=== PATIENT | male | born 1955 | race Caucasian/White ===

== ENCOUNTER 2018-01-11 06:59 | Day surgery (SDC) | payer OTHER, SELFPAY ==
[2018-01-11] VITALS (7 sets, daily range): BP systolic 107–125; BP diastolic 73–85; PULSE 51–57; RESP 6–16; TEMP 36.2–36.6; O2SAT 95–99; BMI 23.7
--- NOTE | 2018-01-11 | PATH_ITS ---
[facility] Accession Number: [id number] . 01 Material submitted: . PART A: COLON POLYP AT 40CM PART B: COLON POLYP AT 20CM . 02 Diagnosis: A. Biopsy Colon Polyp at 40 cm: Changes consistent with prolapsed inflammatory polyp, negative for atypia. . B. Biopsy Colon Polyp at 20 cm: Polypoid tubular adenoma. MRV/01/12/2018 . 02 Electronically signed: . Derrick Humphreys MD, Pathologist NPI- [id number] . 01 Gross description: . Received are two formalin-filled containers, both labeled with the patient's name: . A. In a container labeled colon polyp at 40 cm, the specimen consists of a 0.3 cm portion of tissue, entirely submitted in cassette A. B. In a container labeled colon polyp at 20 cm, the specimen consists of a 0.6 cm portion of tissue, which is trisected and totally submitted in cassette B. ([id number]) /FRR . 02 Pathologist provided ICD-10: D12.8 . 02 CPT . 120465, 014112 Performed at: 01 [facility] [address] [facility], [place], [place] [id number] MD Medardo Stoll MD Phone: [phone] Performed at: 02 [facility] [address] [address] [facility] [address] [place], [place] [id number] MD Zev Harris MD Phone: [phone]
[2018-01-11] MEDS: SODIUM CHLORIDE 0.9% 1,000 ML 200 ML IV (07:35)
--- NOTE | 2018-01-11 07:50 | PM.HP.1 ---
History of Present Illness Chief complaint: [id number] Patient History Medical History Hypercholesterolemia (Acute) Family & Social History Social History: household members spouse Tobacco & Substance use: Never smoker Meds Home Medications Medication Instructions Recorded Confirmed Type Zetia 10 mg PO DAILY 01/11/18 01/11/18 History Allergies Allergy/AdvReac Type Severity Reaction Status Date / Time atorvastatin AdvReac Cramping Verified 01/11/18 07:35 of the Muscles Review of Systems Review of Systems All systems reviewed & are unremarkable except as noted in HPI and below ENT Comments: Hearing aid Exam Vital Signs (past 8 hours): Vital Signs - 8 hr 01/11/18 07:21 Temperature 97.8 F Pulse Rate 52 L Respiratory Rate 16 Blood Pressure 119/78 Pulse Oximetry 99 Pulse Oximetry 99 Oxygen Delivery Method Room Air Narrative Exam Narrative: coOperative in no apparent distress. Healthy appearing. Eyes nonicteric. Lungs clear to auscultation no rales or rhonchi heart regular rate and rhythm without murmur or gallop abdomen is scaphoid soft nontender without masses or organ enlargement. Alert and oriented x3. Assessment & Plan Plan: Assessment/Plan Narrative: Patient with a sister at age 49 having colon cancer. He had polyps removed at his last exam which was 5 years ago. I have discussed the procedure with him and rationale. Risks of bleeding, perforation which would necessitate a major operation, failure to find removal lesions of the potential tattoo were all discussed. He appears to understand and wishes to proceed
--- NOTE | 2018-01-11 07:54 | P.HP_ITS ---
History of Present Illness Chief complaint: [id number] Patient History Medical History Hypercholesterolemia (Acute) Family & Social History Social History: household members spouse Tobacco & Substance use: Never smoker Meds Home Medications Medication Instructions Recorded Confirmed Type Zetia 10 mg PO DAILY 01/11/18 01/11/18 History Allergies Allergy/AdvReac Type Severity Reaction Status Date / Time atorvastatin AdvReac Cramping Verified 01/11/18 07:35 of the Muscles Review of Systems Review of Systems All systems reviewed & are unremarkable except as noted in HPI and below ENT Comments: Hearing aid Exam Vital Signs (past 8 hours): Vital Signs - 8 hr 3 01/11/18 07:21 Temperature 97.8 F Pulse Rate 52 L Respiratory Rate 16 Blood Pressure 119/78 Pulse Oximetry 99 Pulse Oximetry 99 Oxygen Delivery Method Room Air Narrative Exam Narrative: coOperative in no apparent distress. Healthy appearing. Eyes nonicteric. Lungs clear to auscultation no rales or rhonchi heart regular rate and rhythm without murmur or gallop abdomen is scaphoid soft nontender without masses or organ enlargement. Alert and oriented x3. Assessment & Plan Plan: Assessment/Plan Narrative: Patient with a sister at age 49 having colon cancer. He had polyps removed at his last exam which was 5 years ago. I have discussed the procedure with him and rationale. Risks of bleeding, perforation which would necessitate a major operation, failure to find removal lesions of the potential tattoo were all discussed. He appears to understand and wishes to proceed
--- NOTE | 2018-01-11 07:54 | PM.PREOP ---
Pre-operative Note Interval Note Pre-op Check: History & Physical exam performed today H&P completed within 30 days and has changed as indicated here:: None ASA Class (for procedural sedation): I
[2018-01-11] MEDS: fentaNYL 250 MCG/5 ML INJ IV (08:33)
[2018-01-11] MEDS: MIDAZOLAM 5 MG/5 ML VIAL IV (08:34)
--- NOTE | 2018-01-11 09:04 | P.OP.ENDO_ITS ---
Operative Date/Time/Diagnoses - Date of procedure: 01/11/18 Time of procedure: 08:57 Pre-op diagnosis: Screening examination. Family history of colon cancer in a sister. Last colonoscopy 5 years ago. Post-op diagnosis: same (With 2 polyps and small internal hemorrhoids) Procedure & Clinicians Study performed: Colonoscopy with hot snare polypectomy x2 Same procedure as scheduled: Yes Indications: Screening Surgeon: Partha Washburn Procedure Notes SCOAP/Timeout: Performed Procedure in detail: The patient was placed in the left lateral decubitus position and underwent IV sedation directed by the surgeon consisting of fentanyl and Versed. Digital exam was unremarkable. Prostate is normal in size without masses. The scope was advanced to about 50 cm and I could not get the suction to stop sticking. Advancement was quite difficult because of this and therefore the scope was removed and replaced with another scope. This scope was inserted and advanced through the rectum into the sigmoid, descending , transverse, and ascending colon.[I noted a polyp at about 20 cm which I decided to remove on withdrawal]. The cecum was reached identified by the ileocecal valve and the appendiceal opening. The ileocecal valve was successfully cannulated. The terminal ileum was normal in appearance. The scope was gradually brought out. Polyps were found at 40 cm and 20 cm from the anal verge. Both were snared with a hot snare. The largest of the 2 was the most distal at 20 cm and it measured about a cm across. Both appeared to be completely removed. The scope was slowly removed into the rectum. The scope ultimately was retroflexed in the rectum. The appearance was normal except for some small internal hemorrhoids seen as I straightened the scope was slowly pulled it through the anus. The scope was removed and the patient tolerated the procedure well Scope withdrawal time: 12 min excluding snare time Sedation minutes: 43 Findings: internal hemorrhoids (Small without ulceration) and polyp (Twenty and 40 cm from the anal verge) Specimen(s): other (Two polyps) Complications: none Recommendations: Colonscopy in 5 years Plan for aftercare: Follow-up 5 years. Prep was very good. Follow up: as needed Disposition: PACU
--- NOTE | 2018-01-11 10:03 | SUR.PHASEII ---
Pt sat up and c/o feeling lightheaded. Pt reclined and po intake provided. vs stable. pt discharged when reported feeling well.
== END 2018-01-11 09:46 | disposition home or self-care (01) ==
PROVIDERS: PCP Family Medicine; Visit Provider Specialist
PROC: 0DJD8ZZ Inspection of Lower Intestinal Tract, Via Natural or Artificial Opening Endoscopic (ICD-10-PCS; CPT 45378; principal; 2018-01-11 07:45)
DX: Z12.11 Encounter for screening for malignant neoplasm of colon (principal); Z80.0 Family history of malignant neoplasm of digestive organs; K64.8 Other hemorrhoids; E78.5 Hyperlipidemia, unspecified; D12.6 Benign neoplasm of colon, unspecified
CPT/HCPCS: 45385; 99152; 99153; J2250; J3010

== ENCOUNTER → 2019-03-15 09:59 | Outpatient (CLI) | payer MEDICARE, OTHER, SELFPAY ==
--- NOTE | 2019-03-15 | DI.RAD.S_ITS ---
PROCEDURE: XR HIP W PEL IF DONE RT 2V INDICATIONS: RIGHT HIP PAIN TECHNIQUE: 2 views of the hip were acquired. COMPARISON: None. FINDINGS: Bones: No fractures or dislocations, however there is near severe right hip joint osteoarthritis with near [id number] articulation.. No suspicious bony lesions. The visualized pelvic ring appears intact. Soft tissues: No suspicious soft tissue calcifications or masses. IMPRESSION: No prior trauma. 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 Dictated by: Nathaniel Verduzco M.D. on 03/15/2019 at 11:47 Approved by: Nathaniel Verduzco M.D. on 03/15/2019 at 11:48
== END ==
PROVIDERS: PCP Family Medicine; Visit Provider Family Medicine
DX: M25.551 Pain in right hip (principal); M16.11 Unilateral primary osteoarthritis, right hip
CPT/HCPCS: 73502

== ENCOUNTER → 2019-08-10 15:12 | Outpatient (ROUT) | payer MEDICARE, OTHER, SELFPAY ==
[2019-08-10 15:52] LABS: INR 0.9 (0.9-1.3); Prothrombin Time 10.8 SECONDS (10.1-12.7)
[2019-08-10 15:54] LABS: PTT Partial Thromboplastin Tim 32 SECONDS (26.4-36.2)
== END ==
PROVIDERS: PCP Family Medicine; Visit Provider Family Medicine
DX: M25.551 Pain in right hip (principal)
CPT/HCPCS: 85610; 85730

== ENCOUNTER → 2021-02-05 12:18 | Outpatient (CLI) | payer MEDICARE, OTHER, SELFPAY ==
--- NOTE | 2021-02-05 12:24 | DI.RAD.S_ITS ---
PROCEDURE: XR CHEST 2V INDICATIONS: COUGH TECHNIQUE: 2 views of the chest were acquired. COMPARISON: None. FINDINGS: Surgical changes and devices: None. Lungs and pleura: Lungs are clear. No pleural effusions or pneumothorax. Mediastinum: Mediastinal contours are normal. Heart size is normal. Bones and chest wall: No suspicious bony abnormalities. Soft tissues appear unremarkable. IMPRESSION: No acute cardiopulmonary process demonstrated radiographically. Dictated by: Bashir Bentley M.D. on 02/05/2021 at 12:40 Approved by: Bashir Bentley M.D. on 02/05/2021 at 12:41
== END ==
PROVIDERS: PCP Family Medicine; Referring Provider Family Medicine; Visit Provider Family Medicine
DX: R05 Cough (principal)
CPT/HCPCS: 71046

== ENCOUNTER → 2021-04-29 11:35 | Outpatient (CLI) | payer MEDICARE, OTHER, SELFPAY ==
--- NOTE | 2021-04-29 | DI.RAD.S_ITS ---
PROCEDURE: XR CHEST 2V INDICATIONS: DYSPNEA TECHNIQUE: 2 views of the chest were acquired. COMPARISON: [facility], CR, XR CHEST 2V, 02/05/2021, 12:22. FINDINGS: Surgical changes and devices: None. Lungs and pleura: Lungs are clear. No pleural effusions or pneumothorax. Mediastinum: Mediastinal contours are normal. Heart size is normal. Bones and chest wall: No suspicious bony abnormalities. Soft tissues appear unremarkable. IMPRESSION: No evidence acute pulmonary process. Dictated by: Tai Chavis M.D. on 04/29/2021 at 16:13 Approved by: Tai Chavis M.D. on 04/29/2021 at 16:14
[2021-04-29 13:02] LABS: Add Manual Diff / Slide Review NO; Basophils Absolute Auto 0 /uL (0-100); Basophils Percent Auto 0.5 % (0-2); Eosinophils Absolute Auto 100 /uL (0-450); Eosinophils Percent Auto 2.3 % (2-4); Hemoglobin 16.9 g/dL (13.5-17.5); Lymphocytes Absolute Auto 1800 /uL (1100-4500); Lymphocytes Percent Auto 35.1 % (25-40); Mean Corpuscular HGB Conc 33.8 % (30-36); Mean Corpuscular Hemoglobin 31.5 PG (26-34); Mean Corpuscular Volume 93.2 fL (80-100); Monocytes Absolute Auto 600 /uL (0-900); Monocytes Percent Auto 10.7 % (3-14); Neutrophils Absolute Auto 2600 /uL (1500-7000); Neutrophils Percent Auto 51.4 % (50-75); Platelet Count 191 X10^3/uL (150-400); Red Blood Cell Count 5.37 X10^6/uL (4.5-5.9); Red Cell Distribution Width 13.6 % (11.6-14.8); White Blood Cell Count 5.1 X10^3/uL (4.5-11.0)
[2021-04-29 13:27] LABS: Alanine Aminotransferase 66 IU/L (<50); Albumin 4.5 g/dL (3.5-5.0); Albumin Globulin Ratio 1.6 (1.0-2.8); Alkaline Phosphatase 51 U/L (38-126); Aspartate Aminotransferase 55 IU/L (17-59); BUN Creatinine Ratio 18.9 (6-22); Bilirubin Total 0.8 mg/dL (0.2-1.3); Blood Urea Nitrogen 17 mg/dL (9-20); Calcium 9.8 mg/dL (8.4-10.2); Carbon Dioxide 30 mmol/L (22-32); Chloride 103 mmol/L (98-107); Estimated Glomerular Filt Rate > 60.0 mL/min (>60); Globulin 2.9 g/dL (1.7-4.1); Glucose 109 mg/dL (80-110); HEMOLYSIS < 15 (0-50); Potassium 3.9 mmol/L (3.4-5.1); Sodium 140 mmol/L (137-145); Total Protein 7.4 g/dL (6.3-8.2)
[2021-04-29 13:55] LABS: Prostate Specific Antigen Scrn 2.72 ng/mL (0.1-4.0)
[2021-04-29 13:57] LABS: Thyroid Stimulating Hormone 1.61 uIU/mL (0.47-4.68)
== END ==
PROVIDERS: PCP Family Medicine; Referring Provider Family Medicine; Visit Provider Family Medicine
DX: R06.02 Shortness of breath (principal); E78.5 Hyperlipidemia, unspecified; Z12.5 Encounter for screening for malignant neoplasm of prostate; R06.09 Other forms of dyspnea
CPT/HCPCS: 36415; 71046; 80053; 84443; 85025; G0103

== ENCOUNTER → 2021-04-30 09:45 | Outpatient (CLI) | payer MEDICARE, OTHER, SELFPAY ==
--- NOTE | 2021-04-30 | DI.CT.S_ITS ---
PROCEDURE: CT ANGIO CHEST PE PROTOCOL INDICATIONS: Fatigue, short of breath TECHNIQUE: After the administration of intravenous contrast, 2 mm thick sections acquired from the pulmonary apices to the posterior costophrenic angles. Maximum intensity projection (MIP) coronal and sagittal reformats were then acquired through the thorax. For radiation dose reduction, the following was used: automated exposure control, adjustment of mA and/or kV according to patient size. COMPARISON: None. FINDINGS: Image quality: Excellent. Pulmonary arteries: Pulmonary arteries are normal in size, and demonstrate no intraluminal filling defects to suggest central pulmonary embolism. Lungs and pleura: Lungs are clear. No pleural effusions or pneumothorax. Central and peripheral airways are patent. Nonspecific bibasilar atelectasis. Mediastinum: Heart size is normal, without pericardial effusion. No mediastinal or hilar adenopathy. Thoracic aorta is normal in caliber and enhancement. Esophagus is normal in caliber, without hiatal hernia. Bones and chest wall: No suspicious bony lesions. Ribs and thoracic spine appear intact throughout. Thyroid gland unremarkable. No axillary or supraclavicular adenopathy. Abdomen: Visualized upper abdominal solid organs appear normal in the early arterial phase of enhancement. IMPRESSION: No evidence of pulmonary embolism, aortic dissection or aneurysm. Minimal nonspecific dependent atelectasis Approved by: Justin Lugo M.D. on 04/30/2021 at 9:30
== END ==
PROVIDERS: PCP Family Medicine; Referring Provider Family Medicine; Visit Provider Family Medicine
DX: R06.09 Other forms of dyspnea (principal); R53.83 Other fatigue; R06.02 Shortness of breath
CPT/HCPCS: 71275

== ENCOUNTER → 2021-05-21 08:09 | Outpatient (CLI) | payer MEDICARE, OTHER, SELFPAY ==
[2021-05-21 10:24] LABS: COVID19 -Nasal RAPID Negative (Negative)
== END ==
PROVIDERS: PCP Family Medicine; Visit Provider Nurse Practitioner
DX: Z01.812 Encounter for preprocedural laboratory examination (principal); Z20.822 Contact with and (suspected) exposure to COVID-19
CPT/HCPCS: 87635; C9803

== ENCOUNTER → 2021-05-22 09:28 | Outpatient (CLI) | payer MEDICARE, OTHER, SELFPAY ==
--- NOTE | 2021-05-23 20:16 | DI.NM.S_ITS ---
DATE OF SERVICE: 05/22/2021 PROCEDURE PERFORMED: Exercise treadmill stress and rest myocardial perfusion imaging study with gating to assess ejection fraction and regional wall motion. ORDERING PROVIDER: Dr. Denver Jimenez. INDICATIONS: The patient is a 66-year-old male with progressive exertional dyspnea and exercise intolerance. EXERCISE STRESS TESTING: The patient was able to exercise for 8 minutes, 12 seconds on a standard Gennaro protocol, suggesting good exercise capacity with an GEO of -11%. He had a normal heart rate and blood pressure response, achieving a maximum heart rate of 142 BPM (93% of his predicted maximum). He had no chest discomfort but at peak exercise developed profound wheezing associated with respirophasic chest tightness and dyspnea that resolved 2 minutes into recovery. His resting ECG shows nonspecific repolarization abnormality in the inferior leads that become slightly accentuated with stress, but remain nonspecific for ischemia. There were no arrhythmias. At 7 minutes of exercise at a heart rate of 135 BPM, 27.2 millicuries of technetium-99m Myoview was injected and he was imaged 25 minutes later using a gated SPECT acquisition protocol. The following day, he was reinjected with an additional 26.2 millicuries of technetium-99m Myoview was imaged 20 minutes later, again using a gated SPECT acquisition protocol. FINDINGS: 1. Raw data: There is fairly good myocardial tracer uptake. The lung/heart ratio is normal at 0.23 with a normal TID ratio of 0.93. 2. Quantitated gated SPECT: Post-stress ejection fraction is estimated at 68% without any focal wall motion abnormality. Resting ejection fraction is estimated at 62% with a normal end-diastolic volume of 99 mL. 3. Myocardial perfusion imaging: Post-stress supine images shows a fairly uniform pattern of tracer activity without any significant perfusion defects, supported by normal perfusion imaging in the prone position. The resting images show an identical perfusion pattern without any clear areas of significant improvement. IMPRESSION: 1. Normal myocardial perfusion study. 2. No evidence of myocardial ischemia or previous myocardial infarction. 3. Normal left ventricular systolic function without any focal wall motion abnormality. 4. Good exercise capacity without obvious angina, although development of acute wheezing at peak exercise with associated respirophasic chest tightness and dyspnea that promptly resolved. This would suggest possible exercise-induced asthma. He had mild baseline ST-segment abnormalities that become accentuated with stress but remain nonspecific for ischemia. There were no arrhythmias. Greg Baum - Justyn/eliana doc#: [id number]/job#: [id number] dd: 05/23/2021 17:04:00 dt: 05/23/2021 19:22:00 DICTATING MD/COPIES TO: Denver Porter MD; Denver Jimenez MD COPIES MNE: DOUGIE;
== END ==
PROVIDERS: PCP Family Medicine; Referring Provider Family Medicine; Visit Provider Family Medicine
DX: R06.00 Dyspnea, unspecified
CPT/HCPCS: 78452; 93017; A9502

== ENCOUNTER → 2021-06-12 10:54 | Outpatient (CLI) | payer MEDICARE, OTHER, SELFPAY ==
[2021-06-12 12:09] LABS: COVID19 -Nasal RAPID Negative (Negative)
== END ==
PROVIDERS: PCP Family Medicine; Referring Provider Internal Medicine; Visit Provider Internal Medicine
DX: Z20.822 Contact with and (suspected) exposure to COVID-19 (principal)
CPT/HCPCS: 87635; C9803

== ENCOUNTER → 2021-06-13 06:58 | Outpatient (CLI) | payer MEDICARE, OTHER, SELFPAY ==
--- NOTE | 2021-06-18 09:24 | PM.PFT.1 ---
Pulmonary Function Test Referral & Results Date Patient Seen: 06/13/21 Requesting provider: Denver Jimenez Results: The spirometry demonstrates an FVC of 5.16 L which is 96% of predicted. The FEV1 was measured at 3.31 L which is 83% of predicted. The FEV1/FVC ratio was 64 which is 86% of predicted. Following the administration of bronchodilator there was a 23% improvement in FEV1 and a 118% improvement in FEF 25-75% Lung volumes show an SVC of 5.35 L which is 99% of predicted. The diffusing capacity was measured at 31.47 which is 80% of predicted. No hemoglobin value was provided, so no correction for potential anemia could be made, if appropriate. The maximum voluntary ventilation was reduced slightly Interpretation: This study demonstrates mild obstructive lung disease based on reduction FEV1 and minimal reduction FEV1/FVC ratio. There is evidence of significant benefit following bronchodilator based on improvement in both FEV1 and FEF 25-75% There may be a minimal reduction in diffusing capacity, suggesting the possibility of an element of disease at the capillary alveolar level, unless patient is anemic as above Clinical correlation suggested
== END ==
PROVIDERS: PCP Family Medicine; Referring Provider Family Medicine; Visit Provider Family Medicine
DX: R06.09 Other forms of dyspnea (principal)
CPT/HCPCS: 94060; 94726; 94729

== ENCOUNTER → 2025-06-22 07:24 | Outpatient (CLI) | payer MEDICARE, OTHER, SELFPAY ==
--- NOTE | 2025-06-22 07:26 | DI.MRI.S_ITS ---
PROCEDURE: MR PELVIC PROSTATE PROTOCOL INDICATIONS: 70 y/o M w/ elevated PSA, please eval TECHNIQUE: Coronal HASTE, axial T1 FSE with fat saturation, 3-plane nonbreath-hold T2 FSE. After the administration of contrast, dynamic axial, delayed axial and coronal VIBE or 2-D FLASH with fat saturation through the pelvis. Diffusion weighted imaging and ADC was performed. COMPARISON: None. FINDINGS: Image quality: Diffusion weighted and dynamic contrast enhanced images are diagnostic. Prostate: Gland size is 4.6 x 3.3 x 4.6 cm; ellipsoid gland volume is 36 mL. There is diffuse T2 hypointense signal throughout the prostate. Lesion 1: Location: Right peripheral zone, apex, on axial series 4, image 18. Size: 0.7 x 0.8 cm. T2W signal: Hypointense. DWI signal: Markedly hyperintense. ADC signal: Markedly hypointense. Enhancement: Yes. Extracapsular extension: No. No neurovascular involvement. PI-RADS score: 4 Genitourinary system: Bladder wall is trabeculated. Distal ureters are non distended. Bowel and peritoneum: No pathologic free pelvic fluid. Inferior colon and small bowel loops are normal in caliber. Colonic diverticulosis without evidence of diverticulitis. Nodes and vessels: No pelvic or inguinal adenopathy by size criteria. Iliac vessels are normal in caliber. Soft tissues: No inguinal hernias. Bones: Marrow demonstrates normal overall signal, without lesions to suggest metastases. Right hip arthroplasty. IMPRESSION: PI-RADS 4 lesion in the right peripheral zone the apex. No extraprostatic extension. No pelvic lymphadenopathy by size criteria. No aggressive osseous abnormality. Superimposed acute prostatitis. Dictated by: Von Chavarria M.D. on 06/22/2025 at 10:42 Approved by: Von Chavarria M.D. on 06/22/2025 at 10:47
== END ==
LOC: MRI 07:25
PROVIDERS: Family Provider Family Medicine; PCP Family Medicine; Referring Provider Urology; Visit Provider Urology
DX: N41.0 Acute prostatitis (principal); R97.20 Elevated prostate specific antigen [PSA]; N32.89 Other specified disorders of bladder
CPT/HCPCS: 72197; A9579